=== PATIENT | female | born 1985 | race African-American/Black ===

== ENCOUNTER 2022-06-03 10:56 | Emergency (ER) | payer MEDICAID ==
[~2022-06-03] VITALS: Ht 170.2 cm; Wt 137.9 kg
[2022-06-03 11:05] VITALS: BP 145/104
[2022-06-03] MEDS ORDERED: BACI-105 TP (12:33)
[2022-06-03] MEDS ORDERED: CEPH500C16 PO (12:33)
[2022-06-03] MEDS ORDERED: IBUP-1842 PO (12:34)
== END 2022-06-03 12:46 | disposition home or self-care (01) ==
LOC: MED 10:56
DX: L02.411 Cutaneous abscess of right axilla (principal)
CPT/HCPCS: 99283

== ENCOUNTER 2022-07-23 16:17 | Emergency (ER) | payer MEDICAID ==
[~2022-07-23] VITALS: Ht 170.2 cm; Wt 136.1 kg
[~2022-07-23 16:17] MED LIST: BACI-105 TP; CEPH500C16 PO; IBUP-1842 PO
[2022-07-23 16:32] VITALS: BP 146/98
--- NOTE | 2022-07-23 16:52 | NUR ---
PT CALLED IN LOBBY BY PA, NO ANSWER AT THIS TIME.
--- NOTE | 2022-07-23 16:56 | NUR ---
PT MOVED TO BED 06 AT THIS TIME
[2022-07-23] MEDS ORDERED: cefTRIAXone 500 MG in LIDOCAINE MPF 1% 1 ML IM ONE (17:05)
[2022-07-23 17:12] LABS: APPEARANCE,URINE CLEAR (CLEAR); BILIRUBIN,URINE NEGATIVE (NEGATIVE); BLOOD, URINE 1+ (NEGATIVE); COLOR,URINE YELLOW (YELLOW); LEUKOCYTE ESTERASE ,URINE 2+ (NEGATIVE); NITRITE, URINE NEGATIVE (NEGATIVE); PH,URINE 6.5 (5.0-9.0); UGLUCOSE NEGATIVE (NEGATIVE)
[2022-07-23] MEDS ORDERED: cefTRIAXone 500 MG VIAL ONE (17:26)
--- NOTE | 2022-07-23 17:26 | NUR ---
37 Y/O FEMALE BIB SELF C/O VAGINAL DISCHARGED, YELLOW, CREAMY, ITCHY X4DAYS. NKA PMH:NONE
[2022-07-23] MEDS ORDERED: LIDOCAINE MPF 1% 5 ML ONE (17:27)
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
[2022-07-23] MEDS ORDERED: METR-435 PO ×2 (18:16→18:20)
[2022-07-23] MEDS ORDERED: DOXY-690 PO ×2 (18:16→18:20)
[2022-07-23 18:31] VITALS: BP 133/65
--- NOTE | 2022-07-23 18:32 | NUR ---
Patient discharged with v/s stable. Written and verbal after care instructions given and explained. Patient alert, oriented and verbalized understanding of instructions. Ambulatory with steady gait. All questions addressed prior to discharge. ID band removed. Patient advised to follow up with PMD. Rx of DOXYCYCLINE HYCLATE, METRONIDAZOLE given. Opportunity to ask questions provided and answered.
--- NOTE | 2022-07-23 18:35 | NUR ---
The patient's care was reviewed and supervised by Andie Hill, RN, RN.
== END 2022-07-23 18:31 | disposition home or self-care (01) ==
LOC: MED 16:17
DX: A59.01 Trichomonal vulvovaginitis (principal); Z79.899 Other long term (current) drug therapy
CPT/HCPCS: 36415; 81001; 81025; 82570; 87086; 87205; 87210; 96372; 99284; J0696; J2001